=== PATIENT | female | born 1960 | race Caucasian/White ===

== ENCOUNTER → 2016-09-22 | Outpatient (CLI) | payer OTHER ==
--- NOTE | 2016-09-22 16:25 | MG ---
HISTORY: SCREENING Comparison: None FINDINGS: Bilateral CC and MLO projections of the right and left breast were obtained. Scattered fibroglandul ar tissue is seen to be present. Within the retroareolar left breast there are 2 focal asymmetries i dentified. Further evaluation spot-compression views is recommended. If the asymmetries persist, tar geted sonography will be warranted. No significant architectural distortion, mass or clustered micr ocalcifications can be observed to suggest malignancy. No skin thickening is appreciated. No path ological lymphadenopathy can be identified. Benign-appearing calcifications scattered throughout the right and left breasts are observed. IMPRESSION: 1. Left breast retroareolar focal asymmetries for which spot compression views and possible targeted sonography are recommended. ACR CATEGORY 0 - assessment incomplete; additional imaging needed Spot-compression views of the retroareolar left breast recommended Diagnostic CAD was utilized and reviewed. * 0 (ZERO) - ASSESSMENT INCOMPLETE; ADDITIONAL IMAGING IS NEEDED. * / (ONE) - NEGATIVE. * 2/II (TWO) - BENIGN FINDINGS. * 3/III (THREE) - PROBABLY BENIGN FINDING; SHORT INTERVAL FOLLOW-UP SUGGESTED. * 4/IV (FOUR) - SUSPICIOUS ABNORMALITY; BIOPSY SHOULD BE CONSIDERED. * 5/V - HIGHLY SUSPICIOUS OF MALIGNANCY; BIOPSY SHOULD BE PERFORMED. A NEGATIVE X-RAY REPORT SHOULD NOT DELAY BIOPSY IF A DOMINANT OR CLINICALLY SUSPICIOUS MASS IS PRESENT; 4 TO 8 PERCENT OF CANCERS ARE NOT IDENTIFIED BY X-RAY. A NEG ATIVE REPORT MAY REINFORCE THE CLINICAL IMPRESSION. ADENOSIS AND DENSE BREASTS MAY OBSCURE AN UNDER LYING NEOPLASM. Reported By:
== END ==
LOC: RAD 09:32
PROVIDERS: ATTEND Nurse Practitioner Family
DX: Z12.31 Encounter for screening mammogram for malignant neoplasm of breast (principal)
CPT/HCPCS: 77067

== ENCOUNTER → 2016-10-07 | Outpatient (CLI) | payer OTHER ==
[2016-09-22 13:37] VITALS: BP 164/74
== END ==
LOC: RAD 14:20
PROVIDERS: ATTEND Nurse Practitioner Family
DX: R92.8 Other abnormal and inconclusive findings on diagnostic imaging of breast (principal)
CPT/HCPCS: 76642; 77065

== ENCOUNTER 2020-02-02 17:02 | Inpatient (IN) ==
[2020-02-02 17:10] VITALS: BMI 25.7
--- NOTE | 2020-02-02 19:39 | DR.FEVERAD ---
HPI - Time seen Time seen: 19:37 - PCP Primary Care Physician: DINORAH - Complaints/Symptoms Chief Complaint Doctor Comments: Patient states she has been running a high fever with decreased appetite for the past four days. states she could not eat because she could not keep anything down. Doris Parada has been giving her Zofran but it has not been helping. She has been coughing so hard until blood came from her nose. She denies diarrhea or dysuria. She denies tobacco or alcohol usage. She has been having epigastric pain from taking so mouch tylenol and motrin. Chief Complaint:: PT COMPLAINTS OF FEVER OF 102-103 AT HOME, TAKING MOTRIN AND TYLENOL WITH NO RELIEF FROM FEVER. PT COUGHING AND LAST NIGHT COUGHING UP BLOOD, NO APPETTITE HAVEN'T EATEN IN 3 DAYS. Self Treatment fo Chief Complaint: WENT TO PRIMARY CARE - COVID-19 Coronavirus risk:travel/contact w/high risk person: Yes Has patient experienced Coronavirus symptoms: No Coronavirus symptoms experienced: Coughing - Nurses notes reviewed Nurses Notes Review: Yes - Source History Provided: Patient - Mode of Arrival Mode of Arrival: Ambulatory - Timing Onset of Chief Complaint: 01/30/20 Came on: Gradually - Duration Duration: Constant How lon Duration: Days - Severity Fever Severity/Quality: subjective, greater than 100.5 F - Context Recent: None Symptoms: Fever, Cough, Nasal symptoms History of: None - Modifying factors Modifying factors: Tylenol, Ibuprofen - Associated signs and symptoms Associated signs and symptoms: Nausea, Vomiting PMH - PMH Past Medical History: Yes Past Medical History: Anxiety, Depression Past Medical History Comment: CANCER Past Surgical History: Yes 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, Other Past Surgical History Comment: VULVA CANCER - Family History History of Family Medical Conditions: Yes Family Medical History: Diabetes Mellitus - Social History Does any household member use tobacco: No Alcohol Use: None Do you use any recreational Drugs:: No Lives With: Mom, Family Lives Where: Home - infectious screening In the last 2 months have you had wt loss of >10#?: NO Have you had fever, night sweats or hemotysis?: No Have you traveled outside the country in the last 6 months?: No Isolation: Standard ROS - Review of Systems Constitutional: No Symptoms Reported Eyes: No Symptoms Reported ENTM: No Symptoms Reported, Nose Congestion Respiratoy: No Symptoms Reported, Dry Cough Cardiovascular: No Symptoms Reported Gastrointestinal/Abdominal: No Symptoms Reported, Nausea, Vomiting Genitourinary: No Symptoms Reported Neurological: No Symptoms Reported Musculoskeletal: No Symptoms Reported Integumentary: No Symptoms Reported Hematologic/Lymphatic: No Symptoms Reported Endocrine: No Symptoms Reported Psychiatric: No Symptoms Reported. negative: See HPI, Anxiety, Depression, Hallucinations, Excessive crying, Suicidal, Other PE - General Limitations: No Limitations General Appearance: Alert, In Distress (slight) - Head Head Exam: Normal Inspection, Atraumatic, Normocephalic - Eyes Eye exam: Normal Appearance, PERRL, EOMI. negative: Scleral Icterus, Conjunctival Injection, Nystagmus, Miosis, Mydrasis, Periorbital Swelling, Periorbital Tenderness, Other - ENT ENT Exam: Normal Exam, Normal Oropharynx, Normal External Ear Exam, Mucous Membranes Moist, TM's Normal Bilaterally External Ear Exam: Normal External Inspection TM/Canal Exam: Bilateral Normal Nasal Speculum Exam: Bilateral Normal Mouth Exam: Normal Inspection. negative: Drooling, Trismus, Lip Swelling, Tongue Elevation, Tongue Swelling, Laceration, Other Teeth Exam: Normal Inspection Throat Exam: Normal Inspection - Neck Neck Exam: Normal Inspection, Full ROM, Trachea Midline. negative: Tenderness, Meningismus, Lymphadenopathy, Thyromegaly, Other - Respiratory Respiratory Exam: Normal Lung Sounds Bilat Respiratory Exam: Bilateral Clear to Auscultation - Cardiovascular Cardiovascular Exam: Regular Rate, Normal Rhythm, Normal Heart Sounds - Abdominal Exam Abdominal Exam: Normal Inspection, Normal Bowel Sounds, Soft, Hyperactive Bowel Sounds. negative: Distention, Tenderness, Guarding, Rebound, Rigidity, Dimnished Bowel Sounds, Hypoactive Bowel Sounds, Organomegaly, Trauma, Incision, Ascites, Mass, Bruit, Pulsatile Mass, Hernia, Other Abdominal Tenderness: Epigastrium, Mild - Extremities Extremities Exam: Normal Inspection, Full ROM, Normal Capillary Refill. negative: Tenderness, Edema, Joint Swelling, Calf Tenderness, Other - Back Back Exam: Normal Inspection, Full ROM. negative: Tenderness, (R) CVA Tende rness, (L) CVA Tenderness, Muscle Spasm, Paraspinal Tenderness, Vertebral Tenderness, Rashes, (R) Sciatic Notch Tenderness, (L) Sciatic Notch Tendern, (R) Straight Leg Raise, (L) Straight Leg Raise, Other - Neurologic Neurological Exam: Alert, Oriented X3, CN II-XII Intact, Normal Gait, Reflexes Normal - Psychiatric Psychiatric Exam: Normal Affect, Normal Mood. negative: Depressed, Agitated, Anxious, Flat Affect, Manic, Homicidal Ideation, Suicidal Ideation, Other - Skin Skin Exam: Warm, Dry, Intact, Normal Color Type of Lesion: negative: Rash, Abscess, Laceration, Foreign Body, Bite/Sting, Abrasion, Other Distribution: negative: Generalized, Involves Palms/Soles, Head, Face, Neck, Thorax, Chest, Back, Abdomen, Genitals, LUE, LLE, RUE, RLE, Other Description: negative: Size, Tenderness, Erythematous, Swelling, Macular, Papular, Vesicular, Blisters, Cofluent, Bullous, Petechial, Purpuric, Urtica rial, Crusting, Discharge, Fluctuant, Indurated, Other - Vital Signs Vitals: Temperature 99.7 F Pulse Rate 108 Respiratory Rate 20 Blood Pressure [Left Arm] 141/82 Blood Pressure 103/66 O2 Sat by Pulse Oximetry 99 ROR - Labs Reviewed Result Diagrams: 02/02/20 20:00 02/02/20 20:00 - Labs Reviewed Laboratory: WBC 3.3 X10^3/uL (3.6-10.0) L 02/02/20 20:00 RBC 4.36 X10^6/uL (3.5-5.4) 02/02/20 20:00 Hgb 13.8 g/dL (12.0-16.0) 02/02/20 20:00 Hct 41.1 % (36.0-47.0) 02/02/20 20: MCV 94.1 fL (80.0-100.0) 02/02/20 20:00 MCH 31.7 pg (27.0-34.0) 02/02/20 20:00 MCHC 33.7 g/dL (33.0-35.0) 02/02/20 20: RDW 13.1 % (11.6-16.5) 02/02/20 20:00 Plt Count 135 X10^3/uL (150.0-450.0) L 02/02/20 20: MPV 8.2 fL (7.4-11.0) 02/02/20 20: Neut % (Auto) 72.0 % (42.0-75.0) 02/02/20 20:00 Lymph % (Auto) 19.6 % (21.0-51.0) L 02/02/20 20:00 [place] % (Auto) 8.0 % (0.0-13.0) 02/02/20 20:00 Eos % (Auto) 0.0 % (0.9-2.9) L 02/02/20 20:00 Baso % (Auto) 0.4 % (0.2-1.0) 02/02/20 20:00 Neut # (Auto) 2.4 x10^3/uL (2.2-4.8) 02/02/20 20:00 Lymph # (Auto) 0.7 X10^3/uL (1.3-2.9) L 02/02/20 20:00 [place] # (Auto) 0.3 x10^3/uL (0.3-0.8) 02/02/20 20:00 Eos # (Auto) 0.0 x10^3/uL (0.0-0.2) 02/02/20 20:00 Baso # (Auto) 0.0 X10^3/uL (0.0-0.1) 02/02/20 20:00 Absolute Nucleated RBC 0.2 /100WBC 02/02/20 20:00 Sodium 137 mmol/L (136-145) 02/02/20 20:00 Corrected Sodium TNP 02/02/20 20:00 Potassium 4.3 mmol/L (3.5-5.1) 02/02/20 20:00 Chloride 102 mmol/L (98-107) 02/02/20 20:00 Carbon Dioxide 28.7 mmol/L (21-32) 02/02/20 20:00 BUN 15 mg/dL (7-18) 02/02/20 20:00 Creatinine 1.30 mg/dL (0.55-1.02) H 02/02/20 20:00 Est GFR (MDRD) Af Amer 54 (>60) L 02/02/20 20:00 Est GFR (MDRD) Non-Af 44 (>60) L 02/02/20 20:00 Glucose 103 mg/dL (65-99) H 02/02/20 20:00 Calcium 8.1 mg/dL (8.5-10.1) L 02/02/20 20:00 Corrected Calcium 8.7 mg/dL (8.5-10.1) 02/02/20 20:00 Total Bilirubin 0.30 mg/dL (0.2-1.0) 02/02/20 20:00 AST 30 Units/L (15-37) 02/02/20 20:00 ALT 28 Units/L (12-78) 02/02/20 20:00 Alkaline Phosphatase 56 Units/L (46-116) 02/02/20 20:00 Total Protein 7.1 g/dL (6.4-8.2) 02/02/20 20:00 Albumin 3.2 g/dL (3.4-5.0) L 02/02/20 20:00 Globulin 3.9 g/dL (2.5-4.5) 02/02/20 20:00 Albumin/Globulin Ratio 0.8 Ratio (1.1-2.1) L 02/02/20 20:00 Amylase 56 Units/L (25-115) 02/02/20 20:00 Lipase 186 Units/L (73-393) 02/02/20 20:00 Specimen Type Clean catch urine 02/02/20 21:02 Urine Color Yellow (YELLOW) 02/02/20 21: Urine Appearance Clear (CLEAR) 02/02/20 21:02 Urine pH 6.0 (5.0 - 8.0) 02/02/20 21:02 Ur Specific [place] 1.015 (1.000-1.030) 02/02/20 21:02 Urine Protein Negative (NEGATIVE) 02/02/20 21: Urine Glucose (UA) Negative (NEGATIVE) 02/02/20 21: Urine Ketones Negative (NEGATIVE) 02/02/20 21: Urine Occult Blood 1+ (NEGATIVE) 02/02/20 21: Urine Nitrite Negative (NEGATIVE) 02/02/20 21: Urine Bilirubin Negative (NEGATIVE) 02/02/20 21: Urine Urobilinogen 1+ (NORMAL) 02/02/20 21:02 Ur Leukocyte Esterase Negative (NEGATIVE) 02/02/20 21:02 Urine RBC 0-2 /HPF (0-3) 02/02/20 21: Urine WBC None seen /HPF (0-5) 02/02/20 21:02 Ur Squamous Epith Cells Many /HPF (NEGATIVE) 02/02/20 21:02 Urine Bacteria Negative /HPF (NEGATIVE) 02/02/20 21:02 Ur Culture Indicated? No/not indicated 02/02/20 21:02 SARS-CoV-2 (PCR) Positive (NEGATIVE) A 02/02/20 23:00 Opioid - Opioid Risk Tool Age (Tae box if 16-45): No History of Preadolescent Sexual Abuse: No Total: 0 Total Score Risk Category: Low Risk - Diagnosis Discharge Problem: COVID-19 virus infection, Pneumonia due to COVID-19 virus Chronic kidney disease (CKD) Qualifiers: Chronic kidney disease stage: stage 3 (moderate) Qualified Code(s): N18.3 - Chronic kidney disease, stage 3 (moderate) Neutropenia Qualifiers: Neutropenia type: unspecified Qualified Code(s): D70.9 - Neutropenia, unspecified Vomiting Qualifiers: Vomiting type: unspecified - Discharge Plan Disposition: ADMITTED INPATIENT Condition: Stable - Follow ups/Referrals Follow ups/Referrals: MERVAT PARADA [Primary Care Provider] - 3 days - Instructions
[2020-02-02] MEDS ORDERED: NS 1000 ML 1,000 ML IV ONE (19:51)
[2020-02-02] MEDS ORDERED: PHENERGAN INJ 25 MG IM ONE ×2 (19:51→20:28)
[2020-02-02 20:09] LABS: BASOPHILS % (AUTO) 0.4 % (0.2-1.0); HEMATOCRIT 41.1 % (36.0-47.0); HEMOGLOBIN 13.8 g/dL (12.0-16.0); LYMPHOCYTES # (AUTO) 0.7 X10^3/uL (1.3-2.9); LYMPHOCYTES % (AUTO) 19.6 % (21.0-51.0); MEAN CORPUSCULAR HEMOGLOBIN 31.7 pg (27.0-34.0); MEAN CORPUSCULAR HGB CONC 33.7 g/dL (33.0-35.0); MEAN CORPUSCULAR VOLUME 94.1 fL (80.0-100.0); MEAN PLATELET VOLUME 8.2 fL (7.4-11.0); MONOCYTES # (AUTO) 0.3 x10^3/uL (0.3-0.8); NEUTROPHILS # (AUTO) 2.4 x10^3/uL (2.2-4.8); PLATELET COUNT 135 X10^3/uL (150.0-450.0); RED BLOOD COUNT 4.36 X10^6/uL (3.5-5.4); RED CELL DISTRIBUTION WIDTH 13.1 % (11.6-16.5); WHITE BLOOD COUNT 3.3 X10^3/uL (3.6-10.0)
[2020-02-02 20:18] LABS: ALANINE AMINOTRANSFERASE 28 Units/L (12-78); ALBUMIN 3.2 g/dL (3.4-5.0); ALKALINE PHOSPHATASE 56 Units/L (46-116); AMYLASE 56 Units/L (25-115); ASPARTATE AMINO TRANSFERASE 30 Units/L (15-37); BLOOD UREA NITROGEN 15 mg/dL (7-18); CALCIUM 8.1 mg/dL (8.5-10.1); CARBON DIOXIDE 28.7 mmol/L (21-32); CHLORIDE 102 mmol/L (98-107); COR CA(FOR HYPOALB) 8.7 mg/dL (8.5-10.1); LIPASE 186 Units/L (73-393); SODIUM 137 mmol/L (136-145); TOTAL PROTEIN 7.1 g/dL (6.4-8.2); eGFR NON BLACK RACES 44 (>60)
[2020-02-02] MEDS ORDERED: NS 1000 ML 1,000 ML ONE (20:28)
--- NOTE | 2020-02-02 20:32 | RAD ---
HISTORYPT C/O HIGH FEVER, COUGH, NAUSEA HX OF VULVA CANCER.brSX- GYNSTUDYACUTE ABDOMEN SERIESCOMPARISONNoneFINDINGSThe trachea is midline. The cardiac silhouette is [unremarkable]. [Right basilar airspace opacities.] [The bony thorax is unremarkable].Flat plate and upright evaluation of the abdomen demonstrates a [normal bowel gas pattern]. There is no pneumoperitoneum. No pathological soft tissue mass or calcification can be observed. The bony structures are grossly intact.IMPRESSION1. [Right basilar airspace opacities concerning for pneumonia.]2. [No evidence for acute abdominal pathology identified.]Electronically signed by: PAULINA CHANG (Feb 02, 2020 20:32:09)
[2020-02-02] MEDS ORDERED: TYLENOL 325 MG TAB PO ONE ×2 (20:49→20:51)
[2020-02-02] MEDS ORDERED: ROCEPHIN VIAL 1 GRAM 1 G in NS 100 ML IV + SPIKE MINIBAG* 100 ML IV ONE (20:57)
[2020-02-02] MEDS ORDERED: NS 100 ML IV + SPIKE MINIBAG* 100 ML IV ONE (21:07)
[2020-02-02] MEDS ORDERED: ROCEPHIN VIAL 1 GRAM ONE (21:07)
[2020-02-02 21:18] LABS: BILIRUBIN,URINE NEGATIVE (NEGATIVE); BLOOD/HEMOGLOBIN,URINE 1+ (NEGATIVE); GLUCOSE, URINE NEGATIVE (NEGATIVE); KETONES,URINE NEGATIVE (NEGATIVE); LEUKOCYTE ESTERASE ,URINE NEGATIVE (NEGATIVE); NITRITES,URINE NEGATIVE (NEGATIVE); PROTEIN,URINE NEGATIVE (NEGATIVE); UROBILINOGEN,URINE 1+ (NORMAL)
[2020-02-02 21:30] LABS: APPEARANCE,URINE CLEAR (CLEAR); COLOR,URINE YELLOW (YELLOW)
[2020-02-02 21:31] LABS: RBC,URINE 0-2 /HPF (0-3); SQUAMOUS EPITHELIAL CELL,UR MANY /HPF (NEGATIVE)
[2020-02-02 21:32] LABS: BACTERIA,URINE NEGATIVE /HPF (NEGATIVE)
[2020-02-02] MEDS ORDERED: TUSSIONEX PENNKINETIC SUSP PO PRN (23:40)
[2020-02-03] MEDS ORDERED: VENTOLIN or PROAIR HFA IN PRN (00:50)
[2020-02-03] MEDS ORDERED: REMDESIVIR (INVESTIGATIONAL DRUG GS-5734) 200 MG in NS 250 ML IV 250 ML IV SCH (01:00)
--- NOTE | 2020-02-03 01:14 | RAD ---
HISTORYpneumoniaSTUDYCHEST, PA/LAT ADULTCOMPARISONNoneFINDINGSThe trachea is midline. The cardiac silhouette is within normal limits. Patchy hazy opacities of the bilateral lung bases, right greater than left. No pleural effusion or pneumothorax.. Mild multilevel spondylosis.IMPRESSIONPatchy airspace opacities of the bilateral lung bases, right greater than left, concerning for multifocal pneumonia. Follow-up is recommended.Electronically signed by: Ghazala Hung (Feb 03, 2020 01:12:53)
[2020-02-03] MEDS ORDERED: NS 100 ML IV 100 ML IV ONE (01:35)
[2020-02-03] MEDS ORDERED: ASCORBIC ACID INJ MULTI-DOSE VIAL IV ONE (01:36)
[2020-02-03] MEDS: NS 1000 ML 1,000 ML IV SCH (01:54)
[2020-02-03] MEDS: VIBRAMYCIN 100 MG in NS 100 ML IV + SPIKE MINIBAG* 100 ML IV SCH ×3 (01:55→20:16)
[2020-02-03] MEDS: DECADRON TAB PO SCH (01:55)
[2020-02-03] MEDS: ASCORBIC ACID INJ MULTI-DOSE VIAL 1,500 MG in NS 100 ML IV 100 ML IV SCH ×4 (04:25→20:13)
[2020-02-03] MEDS ORDERED: ROCEPHIN VIAL 1 GRAM ONE (05:21)
[2020-02-03] MEDS ORDERED: NS 100 ML IV + SPIKE MINIBAG* 100 ML IV ONE (05:21)
[2020-02-03] MEDS: ROCEPHIN VIAL 1 GRAM 1 G in NS 100 ML IV + SPIKE MINIBAG* 100 ML IV SCH (05:38)
[2020-02-03 06:39] LABS: ALANINE AMINOTRANSFERASE 24 Units/L (12-78); ALBUMIN 2.7 g/dL (3.4-5.0); ALKALINE PHOSPHATASE 48 Units/L (46-116); ASPARTATE AMINO TRANSFERASE 25 Units/L (15-37); BLOOD UREA NITROGEN 13 mg/dL (7-18); CALCIUM 7.5 mg/dL (8.5-10.1); CARBON DIOXIDE 24.1 mmol/L (21-32); CHLORIDE 105 mmol/L (98-107); COR CA(FOR HYPOALB) 8.5 mg/dL (8.5-10.1); COR NA(FOR HYPERGLY) 139 mmol/L (136-145); SODIUM 139 mmol/L (136-145); TOTAL PROTEIN 6.3 g/dL (6.4-8.2); eGFR NON BLACK RACES > 60 (>60)
[2020-02-03 07:08] LABS: BASOPHILS % (AUTO) 0.3 % (0.2-1.0); HEMOGLOBIN 12.6 g/dL (12.0-16.0); LYMPHOCYTES # (AUTO) 0.6 X10^3/uL (1.3-2.9); LYMPHOCYTES % (AUTO) 25.3 % (21.0-51.0); MEAN CORPUSCULAR HEMOGLOBIN 31.9 pg (27.0-34.0); MEAN CORPUSCULAR HGB CONC 34.1 g/dL (33.0-35.0); MEAN CORPUSCULAR VOLUME 93.5 fL (80.0-100.0); MEAN PLATELET VOLUME 8.7 fL (7.4-11.0); MONOCYTES # (AUTO) 0.2 x10^3/uL (0.3-0.8); MONOCYTES % (AUTO) 6.6 % (0.0-13.0); NEUTROPHILS # (AUTO) 1.7 x10^3/uL (2.2-4.8); NEUTROPHILS % (AUTO) 67.8 % (42.0-75.0); PLATELET COUNT 125 X10^3/uL (150.0-450.0); RED BLOOD COUNT 3.95 X10^6/uL (3.5-5.4); WHITE BLOOD COUNT 2.5 X10^3/uL (3.6-10.0)
[2020-02-03] MEDS ORDERED: ZINC SULFATE ONE (07:28)
[2020-02-03] MEDS ORDERED: TRICOR TAB 160 MG ONE (07:28)
[2020-02-03] MEDS ORDERED: ROBITUSSIN DM ONE (07:28)
[2020-02-03] MEDS ORDERED: LOVENOX INJ 30 MG SYR SC ONE (07:29)
[2020-02-03] MEDS ORDERED: PLAQUENIL PO SCH (09:00)
[2020-02-03] MEDS ORDERED: VITAMIN D (1.25MG) PO SCH (09:00)
[2020-02-03] MEDS ORDERED: TRICOR TAB 160 MG PO SCH (09:00)
[2020-02-03] MEDS ORDERED: VITAMIN A PO SCH (09:00)
[2020-02-03] MEDS: ROBITUSSIN DM PO SCH ×4 (09:26→20:15)
[2020-02-03] MEDS: LOVENOX INJ 30 MG SYR SC SCH ×2 (09:26→20:14)
[2020-02-03] MEDS: ZINC SULFATE PO SCH ×2 (09:27→20:14)
[2020-02-03] MEDS: REMDESIVIR (INVESTIGATIONAL DRUG GS-5734) 100 MG in NS 250 ML IV 250 ML IV SCH (11:01)
[2020-02-03] MEDS: TRICOR TAB 145 MG PO SCH (12:41)
--- NOTE | 2020-02-03 13:07 | DR.H&P ---
H&P History & Physical for Day of: H&P Date: 02/03/20 Chief Complaint Chief Complaint: fever, nausea, weakness Allergies Allergies Allergy/AdvReac Type Severity Reaction Status Date / Time No Known Drug Allergies Allergy Verified 04/07/19 15:55 History of Present Illness History of Present Illness: Ms. Arthur is a 59y/o female with a PMH of chronic anxiety, HTN and hypothyroidism presented with high fever, Tmax 104 at home, nausea, upset stomach and poor appetite for the past 4-5 days. She saw her PCP and was given Zofran which did not help. She has been taking Tylenol and advil every 4 hrs for fever. Denies SOB or cough. Denies vomiting or diarrhea. Denies sick contact or any known exposure. ED work-up - COVID-19 positive - CXR: multifocal pneumonia, patchy hazy bilateral opacities. R>L - Labs: Plt: 135 WBC-3.3 Patient was started on Rocephin, Doxcycline, Remdesivir and Decadron. She states she feels slightly better this morning. She still has burning sensation in the upper epigastric area. She reports nausea, no vomiting or diarrhea. She is currently on room air. Plan: continue IV abx, Remdesivir and Decadron, will add Vit C. Start Pepcid and GI cocktail prn. Resume home medications. Monitor AM labs. 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 Family History Family Medical History: Diabetes Mellitus Social History Does any household member use tobacco: No Alcohol Use: None Medications Home Medications: No Known Drug Allergies Allergy (Verified 04/07/19 15:55) Labs Result Diagrams: 02/03/20 06:06 02/03/20 06:06 Labs: Laboratory WBC 2.5 X10^3/uL (3.6-10.0) L 02/03/20 06:06 RBC 3.95 X10^6/uL (3.5-5.4) 02/03/20 06:06 Hgb 12.6 g/dL (12.0-16.0) 02/03/20 06:06 Hct 37.0 % (36.0-47.0) 02/03/20 06:06 MCV 93.5 fL (80.0-100.0) 02/03/20 06:06 MCH 31.9 pg (27.0-34.0) 02/03/20 06:06 MCHC 34.1 g/dL (33.0-35.0) 02/03/20 06:06 RDW 13.0 % (11.6-16.5) 02/03/20 06:06 Plt Count 125 X10^3/uL (150.0-450.0) L 02/03/20 06:06 MPV 8.7 fL (7.4-11.0) 02/03/20 06:06 Neut % (Auto) 67.8 % (42.0-75.0) 02/03/20 06:06 Lymph % (Auto) 25.3 % (21.0-51.0) 02/03/20 06:06 [place] % (Auto) 6.6 % (0.0-13.0) 02/03/20 06:06 Eos % (Auto) 0.0 % (0.9-2.9) L 02/03/20 06:06 Baso % (Auto) 0.3 % (0.2-1.0) 02/03/20 06:06 Neut # (Auto) 1.7 x10^3/uL (2.2-4.8) L 02/03/20 06:06 Lymph # (Auto) 0.6 X10^3/uL (1.3-2.9) L 02/03/20 06:06 [place] # (Auto) 0.2 x10^3/uL (0.3-0.8) L 02/03/20 06:06 Eos # (Auto) 0.0 x10^3/uL (0.0-0.2) 02/03/20 06:06 Baso # (Auto) 0.0 X10^3/uL (0.0-0.1) 02/03/20 06:06 Absolute Nucleated RBC 0.0 /100WBC 02/03/20 06:06 Sodium 139 mmol/L (136-145) 02/03/20 06:06 Corrected Sodium 139 mmol/L (136-145) 02/03/20 06:06 Potassium 4.3 mmol/L (3.5-5.1) 02/03/20 06:06 Chloride 105 mmol/L (98-107) 02/03/20 06:06 Carbon Dioxide 24.1 mmol/L (21-32) 02/03/20 06:06 BUN 13 mg/dL (7-18) 02/03/20 06:06 Creatinine 1.00 mg/dL (0.55-1.02) 02/03/20 06:06 Est GFR (MDRD) Af Amer > 60 (>60) 02/03/20 06:06 Est GFR (MDRD) Non-Af > 60 (>60) 02/03/20 06:06 Glucose 116 mg/dL (65-99) H 02/03/20 06:06 Calcium 7.5 mg/dL (8.5-10.1) L 02/03/20 06:06 Corrected Calcium 8.5 mg/dL (8.5-10.1) 02/03/20 06:06 Total Bilirubin 0.30 mg/dL (0.2-1.0) 02/03/20 06:06 AST 25 Units/L (15-37) 02/03/20 06:06 ALT 24 Units/L (12-78) 02/03/20 06:06 Alkaline Phosphatase 48 Units/L (46-116) 02/03/20 06:06 Total Protein 6.3 g/dL (6.4-8.2) L 02/03/20 06:06 Albumin 2.7 g/dL (3.4-5.0) L 02/03/20 06:06 Globulin 3.6 g/dL (2.5-4.5) 02/03/20 06:06 Albumin/Globulin Ratio 0.8 Ratio (1.1-2.1) L 02/03/20 06:06 Amylase 56 Units/L (25-115) 02/02/20 20:00 Lipase 186 Units/L (73-393) 02/02/20 20:00 Specimen Type Clean catch urine 02/02/20 21:02 Urine Color Yellow (YELLOW) 02/02/20 21:02 Urine Appearance Clear (CLEAR) 02/02/20 21:02 Urine pH 6.0 (5.0 - 8.0) 02/02/20 21:02 Ur Specific [place] 1.015 (1.000-1.030) 02/02/20 21:02 Urine Protein Negative (NEGATIVE) 02/02/20 21:02 Urine Glucose (UA) Negative (NEGATIVE) 02/02/20 21:02 Urine Ketones Negative (NEGATIVE) 02/02/20 21:02 Urine Occult Blood 1+ (NEGATIVE) 02/02/20 21:02 Urine Nitrite Negative (NEGATIVE) 02/02/20 21:02 Urine Bilirubin Negative (NEGATIVE) 02/02/20 21:02 Urine Urobilinogen 1+ (NORMAL) 02/02/20 21:02 Ur Leukocyte Esterase Negative (NEGATIVE) 02/02/20 21:02 Urine RBC 0-2 /HPF (0-3) 02/02/20 21:02 Urine WBC None seen /HPF (0-5) 02/02/20 21:02 Ur Squamous Epith Cells Many /HPF (NEGATIVE) 02/02/20 21:02 Urine Bacteria Negative /HPF (NEGATIVE) 02/02/20 21:02 Ur Culture Indicated? No/not indicated 02/02/20 21:02 SARS-CoV-2 (PCR) Positive (NEGATIVE) A 02/02/20 23:00 Review of Systems Constitutional: Fever, Chills, Weakness and Malaise Eyes: No Symptoms Reported ENT: No Symptoms Reported Respiratory: Cough Cardiovascular: No Symptoms Reported Gastrointestinal: Nausea and Abdominal Pain Genitourinary: No Symptoms Reported Musculoskeletal: No Symptoms Reported Skin: No Symptoms Reported Neurological: No Symptoms Reported Physical Exam Vital Signs: Temperature 98.3 F Pulse Rate [Left Brachial] 64 Pulse Rate 80 Respiratory Rate 20 Blood Pressure [Left Arm] 95/50 Blood Pressure 103/66 O2 Sat by Pulse Oximetry 97 Oriented: Normal Eyes: Normal Ear: Normal Nose: Normal Throat: Normal Respiratory: Diminished Throughout Cardiovascular: Normal Auscultation: Bowel Sounds: Normal Palpation: Normal Tenderness: Epigastric and Mild Skin: Normal Musculoskeletal: Normal Psychiatric: Normal Mood Description: Calm and Appropriate Affect: Normal Speech Pattern: Clear and Appropriate Assessment/Plan (1) COVID-19 virus infection: Status: Acute (2) Abdominal discomfort: Status: Acute (3) Hypothyroidism: Qualifiers: Hypothyroidism type: unspecified Qualified Code(s): E03.9 - Hypothyroidism, unspecified Status: Acute (4) Chronic anxiety: Status: Acute (5) HTN (hypertension): Qualifiers: Hypertension type: essential hypertension Qualified Code(s): I10 - Ess ential (primary) hypertension Status: Acute Review H&P Reviewed: Yes Patient was examined?: Yes
[2020-02-03] MEDS: PEPCID 20 MG IV PREMIX* 20 MG/50 ML BAG IV SCH (14:39)
[2020-02-03] MEDS ORDERED: ZOFRAN INJ 4 MG VIAL IVP ONE (19:48)
[2020-02-03] MEDS ORDERED: ZOFRAN INJ 4 MG VIAL ONE (19:53)
[2020-02-04] MEDS ORDERED: PHENERGAN INJ 25 MG IM ONE (01:04)
[2020-02-04] MEDS: PHENERGAN INJ 25 MG IM PRN (01:19)
[2020-02-04] MEDS: NS 1000 ML 1,000 ML IV SCH (01:20)
[2020-02-04] MEDS ORDERED: NS 100 ML IV 100 ML IV ONE (02:37)
[2020-02-04] MEDS ORDERED: ASCORBIC ACID INJ MULTI-DOSE VIAL IV ONE (02:40)
[2020-02-04] MEDS: ASCORBIC ACID INJ MULTI-DOSE VIAL 1,500 MG in NS 100 ML IV 100 ML IV SCH ×4 (02:55→21:34)
[2020-02-04 06:35] LABS: BASOPHILS % (AUTO) 0.2 % (0.2-1.0); HEMOGLOBIN 13.6 g/dL (12.0-16.0); LYMPHOCYTES # (AUTO) 1.9 X10^3/uL (1.3-2.9); LYMPHOCYTES % (AUTO) 37.3 % (21.0-51.0); MEAN CORPUSCULAR HEMOGLOBIN 31.5 pg (27.0-34.0); MEAN CORPUSCULAR VOLUME 92.6 fL (80.0-100.0); MEAN PLATELET VOLUME 8.4 fL (7.4-11.0); MONOCYTES # (AUTO) 0.4 x10^3/uL (0.3-0.8); MONOCYTES % (AUTO) 8.5 % (0.0-13.0); NEUTROPHILS # (AUTO) 2.8 x10^3/uL (2.2-4.8); PLATELET COUNT 144 X10^3/uL (150.0-450.0); RED BLOOD COUNT 4.32 X10^6/uL (3.5-5.4); RED CELL DISTRIBUTION WIDTH 12.7 % (11.6-16.5); WHITE BLOOD COUNT 5.1 X10^3/uL (3.6-10.0)
[2020-02-04 06:50] LABS: ALANINE AMINOTRANSFERASE 21 Units/L (12-78); ALBUMIN 2.8 g/dL (3.4-5.0); ALKALINE PHOSPHATASE 51 Units/L (46-116); ASPARTATE AMINO TRANSFERASE 26 Units/L (15-37); BLOOD UREA NITROGEN 14 mg/dL (7-18); CARBON DIOXIDE 25.7 mmol/L (21-32); CHLORIDE 106 mmol/L (98-107); CREATININE 0.97 mg/dL (0.55-1.02); SODIUM 141 mmol/L (136-145); TOTAL PROTEIN 6.5 g/dL (6.4-8.2); eGFR NON BLACK RACES > 60 (>60)
[2020-02-04] MEDS: LOVENOX INJ 30 MG SYR SC SCH ×2 (09:35→21:34)
[2020-02-04] MEDS: PEPCID 20 MG IV PREMIX* 20 MG/50 ML BAG IV SCH (09:37)
[2020-02-04] MEDS: REMDESIVIR (INVESTIGATIONAL DRUG GS-5734) 100 MG in NS 250 ML IV 250 ML IV SCH (09:37)
[2020-02-04] MEDS: DECADRON TAB PO SCH (09:37)
[2020-02-04] MEDS: ROCEPHIN VIAL 1 GRAM 1 G in NS 100 ML IV + SPIKE MINIBAG* 100 ML IV SCH (09:38)
[2020-02-04] MEDS: SYNTHROID 50 mcg TAB PO SCH (09:39)
[2020-02-04] MEDS: TRICOR TAB 145 MG PO SCH (09:39)
[2020-02-04] MEDS: VIBRAMYCIN 100 MG in NS 100 ML IV + SPIKE MINIBAG* 100 ML IV SCH ×2 (09:40→21:35)
[2020-02-04] MEDS: ZINC SULFATE PO SCH ×2 (09:40→21:34)
[2020-02-04] MEDS: ROBITUSSIN DM PO SCH ×4 (09:40→21:35)
--- NOTE | 2020-02-04 10:29 | PCM.PROG ---
Progress Note Progress Note for Day of Date of Exam: 02/04/20 Subjective Subjective: Patient seen at bedside. She states she had a rough night due to feeling sick with nausea and vomiting. She was not able to tolerate her diet yesterday. She states her abdominal pain has not gotten worse but it's mostly nausea. She feels slightly better today, able to tolerate liquids. She had a tem of 100.2 this AM. Denies SOB, cough. Denies chills. Labs: WBC 5.1 Hgb:13.6 Plt: 144 BUN/Cr: 14/0.97 CRP: 18.9 Plan: continue IV fluids, switch to clear liquids for now, continue Phenergan and GI cocktail, continue Rocephin and Doxycycline, Continue Remdesivir and Decadron. Increase IVF to 125cc/hr. If abdominal Sx worsen then will consider CTAP. Monitor AM labs. Past Medical Family Social History Past Med/Fam/Surg Hx: No changes since H&P Allergies: Allergies No Known Drug Allergies Allergy (Verified 04/07/19 15:55) Review of Systems ROS: No change since H&P Vital Signs and I&O's Vital Signs: Temperature 100.2 F Pulse Rate [Left Brachial] 83 Pulse Rate 80 Respiratory Rate 18 Blood Pressure [Left Arm] 109/63 Blood Pressure 103/66 O2 Sat by Pulse Oximetry 93 Intake and Output: Intake & Output 02/01/20 02/02/20 02/03/20 02/04/20 23:59 23:59 23:59 23:59 Intake Total 1800 / 1800 600 / 600 Balance 1800 / 1800 600 / 600 Physical Exam Oriented: Normal Eyes: Normal Ear: Normal Nose: Normal Throat: Normal Respiratory: Generalized and Diminished Cardiovascular: Normal Auscultation: Bowel Sounds: Normal Tenderness: Epigastric and Mild Skin: Normal Musculoskeletal: Normal Psychiatric: Normal Mood Description: Calm and Appropriate Affect: Normal Speech Pattern: Clear and Appropriate Laboratory and Diagnostics Result Diagrams: 02/04/20 05:18 02/04/20 05:18 Labs: Laboratory WBC 5.1 X10^3/uL (3.6-10.0) 02/04/20 05:18 RBC 4.32 X10^6/uL (3.5-5.4) 02/04/20 05:18 Hgb 13.6 g/dL (12.0-16.0) 02/04/20 05:18 Hct 40.0 % (36.0-47.0) 02/04/20 05:18 MCV 92.6 fL (80.0-100.0) 02/04/20 05:18 MCH 31.5 pg (27.0-34.0) 02/04/20 05:18 MCHC 34.0 g/dL (33.0-35.0) 02/04/20 05:18 RDW 12.7 % (11.6-16.5) 02/04/20 05:18 Plt Count 144 X10^3/uL (150.0-450.0) L 02/04/20 05:18 MPV 8.4 fL (7.4-11.0) 02/04/20 05:18 Neut % (Auto) 54.0 % (42.0-75.0) 02/04/20 05:18 Lymph % (Auto) 37.3 % (21.0-51.0) 02/04/20 05:18 [place] % (Auto) 8.5 % (0.0-13.0) 02/04/20 05:18 Eos % (Auto) 0.0 % (0.9-2.9) L 02/04/20 05:18 Baso % (Auto) 0.2 % (0.2-1.0) 02/04/20 05:18 Neut # (Auto) 2.8 x10^3/uL (2.2-4.8) 02/04/20 05:18 Lymph # (Auto) 1.9 X10^3/uL (1.3-2.9) 02/04/20 05:18 [place] # (Auto) 0.4 x10^3/uL (0.3-0.8) 02/04/20 05:18 Eos # (Auto) 0.0 x10^3/uL (0.0-0.2) 02/04/20 05:18 Baso # (Auto) 0.0 X10^3/uL (0.0-0.1) 02/04/20 05:18 Absolute Nucleated RBC 0.0 /100WBC 02/04/20 05:18 Sodium 141 mmol/L (136-145) 02/04/20 05:18 Corrected Sodium TNP 02/04/20 05:18 Potassium 4.0 mmol/L (3.5-5.1) 02/04/20 05:18 Chloride 106 mmol/L (98-107) 02/04/20 05:18 Carbon Dioxide 25.7 mmol/L (21-32) 02/04/20 05:18 BUN 14 mg/dL (7-18) 02/04/20 05:18 Creatinine 0.97 mg/dL (0.55-1.02) 02/04/20 05:18 Est GFR (MDRD) Af Amer > 60 (>60) 02/04/20 05:18 Est GFR (MDRD) Non-Af > 60 (>60) 02/04/20 05:18 Glucose 82 mg/dL (65-99) 02/04/20 05:18 Calcium 8.0 mg/dL (8.5-10.1) L 02/04/20 05:18 Corrected Calcium 9.0 mg/dL (8.5-10.1) 02/04/20 05:18 Total Bilirubin 0.30 mg/dL (0.2-1.0) 02/04/20 05:18 AST 26 Units/L (15-37) 02/04/20 05:18 ALT 21 Units/L (12-78) 02/04/20 05:18 Alkaline Phosphatase 51 Units/L (46-116) 02/04/20 05:18 C-Reactive Protein 18.90 mg/L (0-3.0) H 02/04/20 05:18 Total Protein 6.5 g/dL (6.4-8.2) 02/04/20 05:18 Albumin 2.8 g/dL (3.4-5.0) L 02/04/20 05:18 Globulin 3.7 g/dL (2.5-4.5) 02/04/20 05:18 Albumin/Globulin Ratio 0.8 Ratio (1.1-2.1) L 02/04/20 05:18 Amylase 56 Units/L (25-115) 02/02/20 20:00 Lipase 186 Units/L (73-393) 02/02/20 20:00 Specimen Type Clean catch urine 02/02/20 21:02 Urine Color Yellow (YELLOW) 02/02/20 21:02 Urine Appearance Clear (CLEAR) 02/02/20 21:02 Urine pH 6.0 (5.0 - 8.0) 02/02/20 21:02 Ur Specific [place] 1.015 (1.000-1.030) 02/02/20 21:02 Urine Protein Negative (NEGATIVE) 02/02/20 21:02 Urine Glucose (UA) Negative (NEGATIVE) 02/02/20 21:02 Urine Ketones Negative (NEGATIVE) 02/02/20 21: Urine Occult Blood 1+ (NEGATIVE) 02/02/20 21: Urine Nitrite Negative (NEGATIVE) 02/02/20 21: Urine Bilirubin Negative (NEGATIVE) 02/02/20 21: Urine Urobilinogen 1+ (NORMAL) 02/02/20 21: Ur Leukocyte Esterase Negative (NEGATIVE) 02/02/20 21:02 Urine RBC 0-2 /HPF (0-3) 02/02/20 21:02 Urine WBC None seen /HPF (0-5) 02/02/20 21:02 Ur Squamous Epith Cells Many /HPF (NEGATIVE) 02/02/20 21:02 Urine Bacteria Negative /HPF (NEGATIVE) 02/02/20 21:02 Ur Culture Indicated? No/not indicated 02/02/20 21:02 SARS-CoV-2 (PCR) Positive (NEGATIVE) A 02/02/20 23:00 Plan (1) Nausea and vomiting: Status: Acute Qualifiers: Vomiting Intractability: non-intractable Vomiting type: unspecified Qualified Code(s): R11.2 - Nausea with vomiting, unspecified (2) COVID-19 virus infection: Status: Acute (3) Abdominal discomfort: Status: Acute (4) Hypothyroidism: Status: Acute Qualifiers: Hypothyroidism type: unspecified Qualified Code(s): E03.9 - Hypothyroidism, unspecified (5) Chronic anxiety: Status: Acute (6) HTN (hypertension): Status: Acute Qualifiers: Hypertension type: essential hypertension Qualified Code(s): I10 - Ess ential (primary) hypertension
[2020-02-04] MEDS: XANAX PO PRN (10:52)
[2020-02-04] MEDS: LEVSIN/MAALOX/LIDOC VISC PO PRN (20:30)
[2020-02-05] MEDS: ASCORBIC ACID INJ MULTI-DOSE VIAL 1,500 MG in NS 100 ML IV 100 ML IV SCH ×4 (02:12→21:29)
[2020-02-05 06:08] LABS: BASOPHILS % (AUTO) 0.2 % (0.2-1.0); HEMATOCRIT 36.3 % (36.0-47.0); HEMOGLOBIN 12.6 g/dL (12.0-16.0); LYMPHOCYTES # (AUTO) 1.1 X10^3/uL (1.3-2.9); LYMPHOCYTES % (AUTO) 49.2 % (21.0-51.0); MEAN CORPUSCULAR HEMOGLOBIN 32.1 pg (27.0-34.0); MEAN CORPUSCULAR HGB CONC 34.6 g/dL (33.0-35.0); MEAN CORPUSCULAR VOLUME 92.6 fL (80.0-100.0); MEAN PLATELET VOLUME 8.2 fL (7.4-11.0); MONOCYTES # (AUTO) 0.4 x10^3/uL (0.3-0.8); MONOCYTES % (AUTO) 17.6 % (0.0-13.0); NEUTROPHILS # (AUTO) 0.7 x10^3/uL (2.2-4.8); PLATELET COUNT 136 X10^3/uL (150.0-450.0); RED BLOOD COUNT 3.92 X10^6/uL (3.5-5.4); RED CELL DISTRIBUTION WIDTH 12.8 % (11.6-16.5); WHITE BLOOD COUNT 2.3 X10^3/uL (3.6-10.0)
[2020-02-05] MEDS: XANAX PO PRN ×3 (06:12→21:30)
[2020-02-05 06:38] LABS: ALANINE AMINOTRANSFERASE 22 Units/L (12-78); ALBUMIN 2.6 g/dL (3.4-5.0); ALKALINE PHOSPHATASE 43 Units/L (46-116); ASPARTATE AMINO TRANSFERASE 24 Units/L (15-37); BLOOD UREA NITROGEN 14 mg/dL (7-18); CALCIUM 7.9 mg/dL (8.5-10.1); CARBON DIOXIDE 26.4 mmol/L (21-32); CHLORIDE 108 mmol/L (98-107); CREATININE 0.79 mg/dL (0.55-1.02); SODIUM 143 mmol/L (136-145); eGFR NON BLACK RACES > 60 (>60)
[2020-02-05 07:21] LABS: PLATELET MORPHOLOGY COMMENT NORMAL (NORMAL)
[2020-02-05] MEDS: VENTOLIN or PROAIR HFA IN SCH ×2 (09:00→15:00)
[2020-02-05] MEDS ORDERED: DUONEB 0.5 MG/3 MG (3 mL) NEB SCH (09:00)
--- NOTE | 2020-02-05 09:35 | RAD ---
HISTORYSOB, HYPOXIA, [id number], 1 VIEWCOMPARISONTwo-view chest February 02, 2020.FINDINGSThe trachea is midline. The cardiac silhouette is unremarkable. Minimal airspace disease is seen in the right lung base improved compared to the study of February 01. Mild interstitial process is seen laterally in the left midlung field without change from 02 February 2020. The bony thorax is unremarkable.IMPRESSIONNo significant interval change in the minimal infiltrates right lung base and lateral left midlung field compared to 02 February 2020.Electronically signed by: KOLBY GALLARDO (Feb 05, 2020 09:35:04)
[2020-02-05] MEDS: PHENERGAN INJ 25 MG IM PRN (09:46)
[2020-02-05] MEDS: LOVENOX INJ 30 MG SYR SC SCH ×2 (10:52→21:29)
[2020-02-05] MEDS: DECADRON TAB PO SCH (10:53)
[2020-02-05] MEDS: PEPCID 20 MG IV PREMIX* 20 MG/50 ML BAG IV SCH (10:54)
[2020-02-05] MEDS: VITAMIN A PO SCH (10:55)
[2020-02-05] MEDS: ROCEPHIN VIAL 1 GRAM 1 G in NS 100 ML IV + SPIKE MINIBAG* 100 ML IV SCH (10:56)
[2020-02-05] MEDS: VIBRAMYCIN 100 MG in NS 100 ML IV + SPIKE MINIBAG* 100 ML IV SCH ×2 (10:58→21:31)
[2020-02-05] MEDS: TRICOR TAB 145 MG PO SCH (10:58)
[2020-02-05] MEDS: ZINC SULFATE PO SCH ×2 (10:59→21:31)
[2020-02-05] MEDS: REMDESIVIR (INVESTIGATIONAL DRUG GS-5734) 100 MG in NS 250 ML IV 250 ML IV SCH (10:59)
[2020-02-05] MEDS: ROBITUSSIN DM PO SCH ×4 (11:00→21:30)
[2020-02-05] MEDS: SYNTHROID 50 mcg TAB PO SCH (11:00)
[2020-02-05] MEDS: VITAMIN D3 125 mcg (5,000 UNITS) PO SCH (11:00)
[2020-02-05] MEDS: LEVSIN/MAALOX/LIDOC VISC PO PRN ×2 (11:45→21:50)
--- NOTE | 2020-02-05 13:06 | PCM.PROG ---
Progress Note Progress Note for Day of Date of Exam: 02/05/20 Subjective Subjective: Patient seen at bedside, she states she is feeling little bit better today. Her nausea has improved, no vomiting overnight. She was able to tolerate clears yesterday. Denies diarrhea. Denies fever or chills. She states she did feel SOB last night but was not put on O2. Labs: WBC 2.3 Hgb:12.6 Plt: 136 BUN/Cr: 14/0.79 Plan: will advance diet to full liquids, continue gentle hydration. Continue Rocephin and Doxycycline, Continue Remdesivir and Decadron. Repeat CXR. Monitor AM labs. Past Medical Family Social History Past Med/Fam/Surg Hx: No changes since H&P Allergies: Allergies No Known Drug Allergies Allergy (Verified 04/07/19 15:55) Review of Systems ROS: No change since H&P Vital Signs and I&O's Vital Signs: Temperature 97.5 F Pulse Rate [Left Brachial] 64 Pulse Rate 88 Respiratory Rate 22 Blood Pressure [Left Arm] 108/58 Blood Pressure 103/66 O2 Sat by Pulse Oximetry 97 Intake and Output: Intake & Output 02/02/20 02/03/20 02/04/20 02/05/20 23:59 23:59 23:59 23:59 Intake Total 1800 / 1800 2710 / 2710 480 / 480 Balance 1800 / 1800 2710 / 2710 480 / 480 Physical Exam Oriented: Normal Eyes: Normal Ear: Normal Nose: Normal Throat: Normal Respiratory: Generalized and Diminished Cardiovascular: Normal Auscultation: Bowel Sounds: Normal Tenderness: Epigastric and Mild (improved ) Skin: Normal Musculoskeletal: Normal Psychiatric: Normal Mood Description: Calm and Appropriate Affect: Normal Speech Pattern: Clear Laboratory and Diagnostics Result Diagrams: 02/05/20 05:38 02/05/20 05:38 Labs: 02/03/20 00:05 Blood Blood Culture - Preliminary Laboratory WBC 2.3 X10^3/uL (3.6-10.0) L 02/05/20 05:38 RBC 3.92 X10^6/uL (3.5-5.4) 02/05/20 05:38 Hgb 12.6 g/dL (12.0-16.0) 02/05/20 05:38 Hct 36.3 % (36.0-47.0) 02/05/20 05:38 MCV 92.6 fL (80.0-100.0) 02/05/20 05:38 MCH 32.1 pg (27.0-34.0) 02/05/20 05:38 MCHC 34.6 g/dL (33.0-35.0) 02/05/20 05:38 RDW 12.8 % (11.6-16.5) 02/05/20 05:38 Plt Count 136 X10^3/uL (150.0-450.0) L 02/05/20 05:38 Plt Count Comment Adequate (ADEQUATE) 02/05/20 05:38 MPV 8.2 fL (7.4-11.0) 02/05/20 05:38 Neut % (Auto) 33.0 % (42.0-75.0) L 02/05/20 05:38 Lymph % (Auto) 49.2 % (21.0-51.0) 02/05/20 05:38 [place] % (Auto) 17.6 % (0.0-13.0) H 02/05/20 05:38 Eos % (Auto) 0.0 % (0.9-2.9) L 02/05/20 05:38 Baso % (Auto) 0.2 % (0.2-1.0) 02/05/20 05:38 Neut # (Auto) 0.7 x10^3/uL (2.2-4.8) L 02/05/20 05:38 Lymph # (Auto) 1.1 X10^3/uL (1.3-2.9) L 02/05/20 05:38 [place] # (Auto) 0.4 x10^3/uL (0.3-0.8) 02/05/20 05:38 Eos # (Auto) 0.0 x10^3/uL (0.0-0.2) 02/05/20 05:38 Baso # (Auto) 0.0 X10^3/uL (0.0-0.1) 02/05/20 05:38 Absolute Nucleated RBC 0.1 /100WBC 02/05/20 05:38 Total Counted 100 02/05/20 05:38 Neutrophils % (Manual) 41 % (39-76) 02/05/20 05:38 Lymphocytes % (Manual) 49 % (13-43) H 02/05/20 05:38 Monocytes % (Manual) 10 % (4-9) H 02/05/20 05:38 Plt Morphology Comment Normal (NORMAL) 02/05/20 05:38 RBC Morphology Normal (NORMAL) 02/05/20 05:38 Sodium 143 mmol/L (136-145) 02/05/20 05:38 Corrected Sodium TNP 02/05/20 05:38 Potassium 3.9 mmol/L (3.5-5.1) 02/05/20 05:38 Chloride 108 mmol/L (98-107) H 02/05/20 05:38 Carbon Dioxide 26.4 mmol/L (21-32) 02/05/20 05:38 BUN 14 mg/dL (7-18) 02/05/20 05:38 Creatinine 0.79 mg/dL (0.55-1.02) 02/05/20 05:38 Est GFR (MDRD) Af Amer > 60 (>60) 02/05/20 05:38 Est GFR (MDRD) Non-Af > 60 (>60) 02/05/20 05:38 Glucose 106 mg/dL (65-99) H 02/05/20 05:38 Calcium 7.9 mg/dL (8.5-10.1) L 02/05/20 05:38 Corrected Calcium 9.0 mg/dL (8.5-10.1) 02/05/20 05:38 Total Bilirubin 0.40 mg/dL (0.2-1.0) 02/05/20 05:38 AST 24 Units/L (15-37) 02/05/20 05:38 ALT 22 Units/L (12-78) 02/05/20 05:38 Alkaline Phosphatase 43 Units/L (46-116) L 02/05/20 05:38 C-Reactive Protein 18.90 mg/L (0-3.0) H 02/04/20 05:18 Total Protein 6.0 g/dL (6.4-8.2) L 02/05/20 05:38 Albumin 2.6 g/dL (3.4-5.0) L 02/05/20 05:38 Globulin 3.4 g/dL (2.5-4.5) 02/05/20 05:38 Albumin/Globulin Ratio 0.8 Ratio (1.1-2.1) L 02/05/20 05:38 Amylase 56 Units/L (25-115) 02/02/20 20:00 Lipase 186 Units/L (73-393) 02/02/20 20:00 Specimen Type Clean catch urine 02/02/20 21:02 Urine Color Yellow (YELLOW) 02/02/20 21:02 Urine Appearance Clear (CLEAR) 02/02/20 21:02 Urine pH 6.0 (5.0 - 8.0) 02/02/20 21:02 Ur Specific [place] 1.015 (1.000-1.030) 02/02/20 21:02 Urine Protein Negative (NEGATIVE) 02/02/20 21:02 Urine Glucose (UA) Negative (NEGATIVE) 02/02/20 21: Urine Ketones Negative (NEGATIVE) 02/02/20 21:02 Urine Occult Blood 1+ (NEGATIVE) 02/02/20 21:02 Urine Nitrite Negative (NEGATIVE) 02/02/20 21:02 Urine Bilirubin Negative (NEGATIVE) 02/02/20 21:02 Urine Urobilinogen 1+ (NORMAL) 02/02/20 21:02 Ur Leukocyte Esterase Negative (NEGATIVE) 02/02/20 21:02 Urine RBC 0-2 /HPF (0-3) 02/02/20 21:02 Urine WBC None seen /HPF (0-5) 02/02/20 21:02 Ur Squamous Epith Cells Many /HPF (NEGATIVE) 02/02/20 21:02 Urine Bacteria Negative /HPF (NEGATIVE) 02/02/20 21:02 Ur Culture Indicated? No/not indicated 02/02/20 21:02 SARS-CoV-2 (PCR) Positive (NEGATIVE) A 02/02/20 23:00 Plan (1) Nausea and vomiting: Status: Acute Qualifiers: Vomiting Intractability: non-intractable Vomiting type: unspecified Qualified Code(s): R11.2 - Nausea with vomiting, unspecified (2) COVID-19 virus infection: Status: Acute (3) Abdominal discomfort: Status: Acute (4) Hypothyroidism: Status: Acute Qualifiers: Hypothyroidism type: unspecified Qualified Code(s): E03.9 - Hypothyroidism, unspecified (5) Chronic anxiety: Status: Acute (6) HTN (hypertension): Status: Acute Qualifiers: Hypertension type: essential hypertension Qualified Code(s): I10 - Essential (primary) hypertension
[2020-02-05] MEDS: NS 1000 ML 1,000 ML IV SCH (20:46)
[2020-02-06] MEDS: VENTOLIN or PROAIR HFA IN SCH ×3 (00:39→11:43)
[2020-02-06] MEDS: ASCORBIC ACID INJ MULTI-DOSE VIAL 1,500 MG in NS 100 ML IV 100 ML IV SCH ×2 (02:23→09:25)
[2020-02-06] MEDS: NS 1000 ML 1,000 ML IV SCH (02:23)
[2020-02-06 06:10] LABS: BASOPHILS % (AUTO) 0.5 % (0.2-1.0); HEMATOCRIT 37.3 % (36.0-47.0); LYMPHOCYTES # (AUTO) 1.3 X10^3/uL (1.3-2.9); LYMPHOCYTES % (AUTO) 33.8 % (21.0-51.0); MEAN CORPUSCULAR HEMOGLOBIN 31.8 pg (27.0-34.0); MEAN CORPUSCULAR VOLUME 90.9 fL (80.0-100.0); MEAN PLATELET VOLUME 8.1 fL (7.4-11.0); MONOCYTES # (AUTO) 0.4 x10^3/uL (0.3-0.8); MONOCYTES % (AUTO) 10.9 % (0.0-13.0); NEUTROPHILS # (AUTO) 2.2 x10^3/uL (2.2-4.8); NEUTROPHILS % (AUTO) 54.8 % (42.0-75.0); PLATELET COUNT 211 X10^3/uL (150.0-450.0); RED CELL DISTRIBUTION WIDTH 12.7 % (11.6-16.5)
[2020-02-06 06:12] LABS: ALANINE AMINOTRANSFERASE 16 Units/L (12-78); ALBUMIN 2.7 g/dL (3.4-5.0); ALKALINE PHOSPHATASE 46 Units/L (46-116); ASPARTATE AMINO TRANSFERASE 19 Units/L (15-37); BLOOD UREA NITROGEN 14 mg/dL (7-18); CALCIUM 8.2 mg/dL (8.5-10.1); CARBON DIOXIDE 23.9 mmol/L (21-32); CHLORIDE 107 mmol/L (98-107); COR CA(FOR HYPOALB) 9.2 mg/dL (8.5-10.1); CREATININE 0.59 mg/dL (0.55-1.02); SODIUM 141 mmol/L (136-145); TOTAL PROTEIN 6.2 g/dL (6.4-8.2); eGFR NON BLACK RACES > 60 (>60)
[2020-02-06] MEDS: PEPCID 20 MG IV PREMIX* 20 MG/50 ML BAG IV SCH (09:25)
[2020-02-06] MEDS: LOVENOX INJ 30 MG SYR SC SCH (09:26)
[2020-02-06] MEDS: ROCEPHIN VIAL 1 GRAM 1 G in NS 100 ML IV + SPIKE MINIBAG* 100 ML IV SCH (09:27)
[2020-02-06] MEDS: ROBITUSSIN DM PO SCH ×2 (09:27→13:10)
[2020-02-06] MEDS: REMDESIVIR (INVESTIGATIONAL DRUG GS-5734) 100 MG in NS 250 ML IV 250 ML IV SCH (09:27)
[2020-02-06] MEDS: TRICOR TAB 145 MG PO SCH (09:28)
[2020-02-06] MEDS: DECADRON TAB PO SCH (09:28)
[2020-02-06] MEDS: ZINC SULFATE PO SCH (09:28)
[2020-02-06] MEDS: SYNTHROID 50 mcg TAB PO SCH (09:28)
[2020-02-06] MEDS: VITAMIN D3 125 mcg (5,000 UNITS) PO SCH (09:29)
[2020-02-06] MEDS: VITAMIN A PO SCH (09:29)
[2020-02-06] MEDS: VIBRAMYCIN 100 MG in NS 100 ML IV + SPIKE MINIBAG* 100 ML IV SCH (09:29)
--- NOTE | 2020-02-06 13:25 | W.DIS.FURT ---
Summary of Discharge Discharge Summary of Date Date of Exam: 02/06/20 Admission Date Date of Admission: 02/02/20 Admission Diagnosis Hospital Course: Ms. Arthur is a 59y/o female with a PMH of chronic anxiety, HTN and hypothyroidism presented with high fever, Tmax 104 at home, nausea, upset stomach and poor appetite for the past 4-5 days. She saw her PCP and was given Zofran which did not help. She has been taking Tylenol and advil every 4 hrs for fever. Denies SOB or cough. Denies vomiting or diarrhea. Denies sick contact or any known exposure. ED work-up showed COVID-19 positive results. CXR: multifocal pneumonia, patchy hazy bilateral opacities. R>L - Labs: Plt: 135 WBC-3.3 Patient was started on Rocephin, Doxcycline, Remdesivir, Decadron and vitamins. Patient was also started on pepcid and GI cocktail for epigastric discomfort. Her symptoms improved and she was tolerating oral intake. She was initially started on clears and diet was advanced as tolerated. She remained on room air. PT/OT evaluated the patient and had no needs. RT also did the walk test and patient did not need oxygen. She will f/u with PCP as scheduled. Vital Signs: Vital Signs (72 hours) 02/03/20 16:00 02/03/20 20:00 02/04/20 00:00 Temperature 98.3 F 98.6 F 99.6 F Pulse Rate Pulse Rate [Left Brachial] 72 72 91 H Respiratory Rate 20 20 21 Blood Pressure [Left Arm] 108/62 133/60 123/66 O2 Sat by Pulse Oximetry 94 L 97 94 L 02/04/20 04:00 02/04/20 08:00 02/04/20 12:00 Temperature 100.2 F H 100.2 F H 99.7 F H Pulse Rate Pulse Rate [Left Brachial] 88 83 87 Respiratory Rate 20 18 20 Blood Pressure [Left Arm] 132/80 109/63 99/60 O2 Sat by Pulse Oximetry 92 L 93 L 93 L 02/04/20 16:00 02/04/20 20:00 02/04/20 20:30 Temperature 98.4 F 98.0 F Pulse Rate Pulse Rate [Left Brachial] 79 72 Respiratory Rate 22 20 20 Blood Pressure [Left Arm] 107/57 103/59 O2 Sat by Pulse Oximetry 95 91 L 02/04/20 21:30 02/04/20 21:44 02/05/20 00:00 Temperature 98.7 F Pulse Rate 88 Pulse Rate [Left Brachial] 60 Respiratory Rate 20 20 Blood Pressure [Left Arm] 99/56 O2 Sat by Pulse Oximetry 92 L 88 L 02/05/20 04:00 02/05/20 08:00 02/05/20 11:45 Temperature 97.6 F 97.5 F L Pulse Rate Pulse Rate [Left Brachial] 58 L 64 Respiratory Rate 20 18 22 Blood Pressure [Left Arm] 104/57 108/58 O2 Sat by Pulse Oximetry 93 L 97 02/05/20 12:00 02/05/20 12:45 02/05/20 16:00 Temperature 98.4 F 98.5 F Pulse Rate Pulse Rate [Left Brachial] 76 75 Respiratory Rate 18 20 20 Blood Pressure [Left Arm] 123/71 129/76 O2 Sat by Pulse Oximetry 97 92 L 02/05/20 20:00 02/05/20 21:50 02/05/20 22:50 Temperature 97.7 F Pulse Rate Pulse Rate [Left Brachial] 69 Respiratory Rate 20 20 20 Blood Pressure [Left Arm] 120/71 O2 Sat by Pulse Oximetry 99 02/06/20 00:00 02/06/20 04:00 02/06/20 08:00 Temperature 97.6 F 97.8 F 98.4 F Pulse Rate Pulse Rate [Left Brachial] 75 67 68 Respiratory Rate 20 21 18 Blood Pressure [Left Arm] 127/73 144/77 125/65 O2 Sat by Pulse Oximetry 93 L 91 L 95 02/06/20 11:40 Temperature Pulse Rate 76 Pulse Rate [Left Brachial] Respiratory Rate Blood Pressure [Left Arm] O2 Sat by Pulse Oximetry 96 Labs: Laboratory Last Values WBC 4.0 X10^3/uL (3.6-10.0) 02/06/20 05:13 RBC 4.10 X10^6/uL (3.5-5.4) 02/06/20 05:13 Hgb 13.0 g/dL (12.0-16.0) 02/06/20 05:13 Hct 37.3 % (36.0-47.0) 02/06/20 05:13 MCV 90.9 fL (80.0-100.0) 02/06/20 05:13 MCH 31.8 pg (27.0-34.0) 02/06/20 05:13 MCHC 35.0 g/dL (33.0-35.0) 02/06/20 05:13 RDW 12.7 % (11.6-16.5) 02/06/20 05:13 Plt Count 211 X10^3/uL (150.0-450.0) 02/06/20 05:13 Plt Count Comment Adequate (ADEQUATE) 02/05/20 05:38 MPV 8.1 fL (7.4-11.0) 02/06/20 05:13 Neut % (Auto) 54.8 % (42.0-75.0) 02/06/20 05:13 Lymph % (Auto) 33.8 % (21.0-51.0) 02/06/20 05:13 [place] % (Auto) 10.9 % (0.0-13.0) 02/06/20 05:13 Eos % (Auto) 0.0 % (0.9-2.9) L 02/06/20 05:13 Baso % (Auto) 0.5 % (0.2-1.0) 02/06/20 05:13 Neut # (Auto) 2.2 x10^3/uL (2.2-4.8) 02/06/20 05:13 Lymph # (Auto) 1.3 X10^3/uL (1.3-2.9) 02/06/20 05:13 [place] # (Auto) 0.4 x10^3/uL (0.3-0.8) 02/06/20 05:13 Eos # (Auto) 0.0 x10^3/uL (0.0-0.2) 02/06/20 05:13 Baso # (Auto) 0.0 X10^3/uL (0.0-0.1) 02/06/20 05:13 Absolute Nucleated RBC 0.1 /100WBC 02/06/20 05:13 Total Counted 100 02/05/20 05:38 Neutrophils % (Manual) 41 % (39-76) 02/05/20 05:38 Lymphocytes % (Manual) 49 % (13-43) H 02/05/20 05:38 Monocytes % (Manual) 10 % (4-9) H 02/05/20 05:38 Plt Morphology Comment Normal (NORMAL) 02/05/20 05:38 RBC Morphology Normal (NORMAL) 02/05/20 05:38 Sodium 141 mmol/L (136-145) 02/06/20 05:13 Corrected Sodium TNP 02/06/20 05:13 Potassium 3.7 mmol/L (3.5-5.1) 02/06/20 05:13 Chloride 107 mmol/L (98-107) 02/06/20 05:13 Carbon Dioxide 23.9 mmol/L (21-32) 02/06/20 05:13 BUN 14 mg/dL (7-18) 02/06/20 05:13 Creatinine 0.59 mg/dL (0.55-1.02) 02/06/20 05:13 Est GFR (MDRD) Af Amer > 60 (>60) 02/06/20 05:13 Est GFR (MDRD) Non-Af > 60 (>60) 02/06/20 05:13 Glucose 96 mg/dL (65-99) 02/06/20 05:13 Calcium 8.2 mg/dL (8.5-10.1) L 02/06/20 05:13 Corrected Calcium 9.2 mg/dL (8.5-10.1) 02/06/20 05:13 Total Bilirubin 0.30 mg/dL (0.2-1.0) 02/06/20 05:13 AST 19 Units/L (15-37) 02/06/20 05:13 ALT 16 Units/L (12-78) 02/06/20 05:13 Alkaline Phosphatase 46 Units/L (46-116) 02/06/20 05:13 C-Reactive Protein 18.90 mg/L (0-3.0) H 02/04/20 05:18 Total Protein 6.2 g/dL (6.4-8.2) L 02/06/20 05:13 Albumin 2.7 g/dL (3.4-5.0) L 02/06/20 05:13 Globulin 3.5 g/dL (2.5-4.5) 02/06/20 05:13 Albumin/Globulin Ratio 0.8 Ratio (1.1-2.1) L 02/06/20 05:13 Amylase 56 Units/L (25-115) 02/02/20 20:00 Lipase 186 Units/L (73-393) 02/02/20 20:00 Specimen Type Clean catch urine 02/02/20 21:02 Urine Color Yellow (YELLOW) 02/02/20 21:02 Urine Appearance Clear (CLEAR) 02/02/20 21:02 Urine pH 6.0 (5.0 - 8.0) 02/02/20 21:02 Ur Specific [place] 1.015 (1.000-1.030) 02/02/20 21:02 Urine Protein Negative (NEGATIVE) 02/02/20 21:02 Urine Glucose (UA) Negative (NEGATIVE) 02/02/20 21: Urine Ketones Negative (NEGATIVE) 02/02/20 21: Urine Occult Blood 1+ (NEGATIVE) 02/02/20 21: Urine Nitrite Negative (NEGATIVE) 02/02/20 21: Urine Bilirubin Negative (NEGATIVE) 02/02/20 21: Urine Urobilinogen 1+ (NORMAL) 02/02/20 21:02 Ur Leukocyte Esterase Negative (NEGATIVE) 02/02/20 21:02 Urine RBC 0-2 /HPF (0-3) 02/02/20 21:02 Urine WBC None seen /HPF (0-5) 02/02/20 21:02 Ur Squamous Epith Cells Many /HPF (NEGATIVE) 02/02/20 21:02 Urine Bacteria Negative /HPF (NEGATIVE) 02/02/20 21:02 Ur Culture Indicated? No/not indicated 02/02/20 21:02 SARS-CoV-2 (PCR) Positive (NEGATIVE) A 02/02/20 23:00 Reason For Visit: PNEUMONIA,CHRONIC KIDNEY DISEASE,NEUTROPENIA, Discharge Date Discharge Date: 02/06/20 Discharge Diagnosis All Active Problems (Updated 02/04/20 @ 10:29 by Eula Rutledge) Nausea and vomiting (Acute) HTN (hypertension) (Acute) Abdominal discomfort (Acute) Chronic anxiety (Acute) Hypothyroidism (Acute) Acute pain of right knee (Acute) Tendonitis of knee, right (Acute) COVID-19 virus infection (Acute) Pneumonia due to COVID-19 virus (Acute) Chronic kidney disease (CKD) (Acute) Neutropenia (Acute) Vomiting (Acute) Abscess of left thigh (Acute) Cellulitis of left thigh (Acute) Plan of Treatment: Continue with present treatment and follow up plan. Pt is to keep follow up appointment as instructed and take medications as ordered. Discharge Medications Discharge Medications: No Known Drug Allergies Allergy (Verified 04/07/19 15:55) CONTINUE taking the following medications ergocalciferol (vitamin D2) [Vitamin D2] 50,000 unit PO WEEKLY 02/05/20 [History] fenofibrate 160 mg PO HS 02/05/20 [History] levothyroxine 25 mcg PO DAILY 02/05/20 [History] lisinopril 20 mg PO DAILY 02/05/20 [History] mirtazapine 15 mg PO DAILY 02/05/20 [History] New Prescriptions albuterol sulfate [Ventolin HFA] 2 puff INHALATION Q6H 30 Days #1 inh 02/06/20 [Rx] cefdinir 300 mg PO BID 5 Days #10 cap 02/06/20 [Rx] famotidine 20 mg PO DAILY 30 Days #30 tab 02/06/20 [Rx] prednisone 20 mg PO DAILY 5 Days #5 tab 02/06/20 [Rx] promethazine 12.5 mg PO TID PRN #20 tab NS 02/06/20 [Rx] Follow up and Referral Follow Up: 1 Week (PCP) Discharge Disposition Discharge Disposition: Home Discharge Condition: Stable
[2020-02-06 13:27] VITALS: BP 135/85
== END 2020-02-06 14:20 | disposition home or self-care (01) | DRG 179 ==
LOC: ER 17:02 → MED/SURG 23:37
PROVIDERS: ADMIT Internal Medicine; ATTEND Internal Medicine
DX: N18.3 Chronic kidney disease, stage 3 (moderate); R10.13 Epigastric pain; F41.8 Other specified anxiety disorders; E03.8 Other specified hypothyroidism; R11.2 Nausea with vomiting, unspecified; D70.9 Neutropenia, unspecified; U07.1 COVID-19; I12.9 Hypertensive chronic kidney disease with stage 1 through stage 4 chronic kidney disease, or unspecified chronic kidney disease; R10.84 Generalized abdominal pain